=== PATIENT | male | born 1960 | race Caucasian/White ===

== ENCOUNTER 2020-08-07 07:12 | Outpatient (CLI) | payer OTHER, SELFPAY ==
[2020-08-07 08:34] LABS: Alanine Aminotransferase 21 U/L (4-50); Albumin Level 4.2 g/dL (3.5-5.1); Alkaline Phosphatase 63 U/L (38-126); Anion Gap 8 mmol/L (8-16); Aspartate Amino Transferase 27 U/L (17-59); Bilirubin,Total 1.3 mg/dL (0.2-1.3); Blood Urea Nitrogen 27 mg/dL (9-20); Carbon Dioxide 27 mmol/L (22-30); Chloride 105 mmol/L (98-107); Cholesterol 214 mg/dL (0-200); Estimated Glomerular Filt Rate > 60; Glucose 100 mg/dL (75-110); HDL Direct 57 mg/dL; Potassium 4.3 mmol/L (3.4-5.0); Sodium 140 mmol/L (137-145); Triglycerides 64 mg/dL (<150)
[2020-08-07 08:46] LABS: LDL Cholesterol Direct 95 mg/dL
[2020-08-07 09:04] LABS: Prostate Specific Antigen 0.8 ng/mL (< OR = 4.0)
[2020-08-07 09:11] LABS: Thyroid Stimulating Hormone 0.576 uIU/mL (0.465-4.680)
== END 2020-08-07 07:13 | disposition home or self-care (01) ==
PROVIDERS: PCP Family Medicine; Visit Provider Nurse Practitioner Family
DX: E78.2 Mixed hyperlipidemia (principal); Z13.29 Encounter for screening for other suspected endocrine disorder; Z12.5 Encounter for screening for malignant neoplasm of prostate
CPT/HCPCS: 36415; 80053; 80061; 84153; 84443; G0103

== ENCOUNTER 2020-12-12 06:50 | Outpatient (CLI) | payer OTHER, SELFPAY ==
[2020-12-12 08:26] LABS: Alanine Aminotransferase 33 U/L (4-50); Cholesterol 136 mg/dL (0-200); Creatine Kinase 30 U/L (55-170); HDL Direct 67 mg/dL; Triglycerides 52 mg/dL (<150)
[2020-12-12 08:37] LABS: LDL Cholesterol Direct 54 mg/dL
== END 2020-12-12 06:51 | disposition home or self-care (01) ==
PROVIDERS: PCP Family Medicine; Visit Provider Nurse Practitioner Family
DX: E78.2 Mixed hyperlipidemia (principal)
CPT/HCPCS: 36415; 80061; 82550; 84460

== ENCOUNTER 2021-09-16 06:53 | Outpatient (CLI) | payer OTHER, SELFPAY ==
[2021-09-16 07:21] LABS: Alanine Aminotransferase 25 U/L (6-50); Albumin Level 4.2 g/dL (3.5-5.1); Alkaline Phosphatase 64 U/L (38-126); Aspartate Amino Transferase 30 U/L (17-59); Bilirubin,Total 0.9 mg/dL (0.2-1.3); Cholesterol 138 mg/dL (0-200); HDL Direct 56 mg/dL; Triglycerides 42 mg/dL (<150)
[2021-09-16 07:32] LABS: LDL Cholesterol Direct 48 mg/dL
[2021-09-16 07:51] LABS: Prostate Specific Antigen 0.9 ng/mL (< OR = 4.0)
== END 2021-09-16 06:54 | disposition home or self-care (01) ==
LOC: ANHLAB 06:55
PROVIDERS: PCP Family Medicine; Visit Provider Family Medicine
DX: Z12.5 Encounter for screening for malignant neoplasm of prostate (principal); E78.2 Mixed hyperlipidemia; Z13.220 Encounter for screening for lipoid disorders
CPT/HCPCS: 36415; 80061; 80076; 84153; G0103

== ENCOUNTER 2022-11-27 07:07 | Outpatient (CLI) | payer OTHER, SELFPAY ==
[2022-11-27 08:02] LABS: Hematocrit 43.5 % (42.0-52.0); Hemoglobin 14.6 g/dL (14.0-18.0); Mean Corpuscular HGB Conc 33.6 g/dl (32-36); Mean Corpuscular Hemoglobin 31.4 pg (26-34); Mean Corpuscular Volume 93.5 fl (80-100); Mean Platelet Volume 9.9 fl (7.4-10.4); Platelet Count Result 203 k/mm3 (150-375); Red Blood Count 4.65 M/mm3 (4.6-6.20); Red Cell Distribution Width 12.2 % (11.5-14.5); White Blood Count 5.9 K/mm3 (4.5-10.0)
[2022-11-27 08:17] LABS: Alanine Aminotransferase 26 U/L (6-50); Albumin Level 4.3 g/dL (3.5-5.1); Alkaline Phosphatase 63 U/L (38-126); Anion Gap 3 mmol/L (8-16); Aspartate Amino Transferase 33 U/L (17-59); Bilirubin,Total 1.2 mg/dL (0.2-1.3); Blood Urea Nitrogen 27 mg/dL (9-20); Calcium 8.4 mg/dL (8.4-10.2); Carbon Dioxide 30 mmol/L (22-30); Chloride 103 mmol/L (98-107); Cholesterol 123 mg/dL (0-200); Estimated Glomerular Filt Rate > 60; Glucose 85 mg/dL (65-110); HDL Direct 55 mg/dL; Sodium 136 mmol/L (137-145); Triglycerides 41 mg/dL (<150)
[2022-11-27 08:28] LABS: LDL Cholesterol Direct 57 mg/dL
[2022-11-27 08:45] LABS: Thyroid Stimulating Hormone 0.387 uIU/mL (0.465-4.680)
[2022-11-27 16:21] LABS: Prostate Specific Antigen 1.1 ng/mL (< OR = 4.0)
== END 2022-11-27 07:08 | disposition home or self-care (01) ==
LOC: ANHLAB 07:08
PROVIDERS: PCP Family Medicine; Visit Provider Family Medicine
DX: Z13.220 Encounter for screening for lipoid disorders (principal); Z12.5 Encounter for screening for malignant neoplasm of prostate; E78.2 Mixed hyperlipidemia; G25.0 Essential tremor
CPT/HCPCS: 36415; 80048; 80061; 80076; 84153; 84443; 85027; G0103

== ENCOUNTER 2023-01-18 06:07 | Day surgery (SDC) | payer OTHER, SELFPAY ==
[2023-01-18 06:44] VITALS: BP 136/83; PULSE 67; RESP 16; TEMP 36.5; O2SAT 100
--- NOTE | 2023-01-18 07:23 | PM.HPGS ---
History of Present Illness History of Present Illness Consent: Risks, benefits, and alternatives have been discussed and questions answered. Patient agrees to proceed with procedure. Chief complaint: Neoplasm Screening Narrative: Waqas Raza is a 62 year old male presents for screening colonoscopy. Patient's current weight appetite and bowel movements are normal. Patient denies abdominal pain. He has had no bleeding. Family history noncontributory. Previous colonoscopy by Dr. Jeff le is unremarkable. Review of Systems Review of Systems: Review of Systems noncontributory. [facility] Past Medical History Medical History BMI 21.0-21.9, adult BMI 22.0-22.9, adult BMI 25.0-25.9,adult Hand cramp Melancholy Shoulder pain, bilateral Family History Family History Mother Family history of malignant neoplasm Father Hyperlipidemia Sibling No problems noted. Sibling Other Diabetes mellitus Social History Social History Smoking status: Never smoker Second hand tobacco smoke exposure: Yes Alcohol intake: current Drinks per week: 4 Substance use: current Substance use type: marijuana Other substance usage details: 3-4 times weekly Lack of Transportation: No Lack of Food: Never True Current Housing: I Have Housing Concerned About Future Housing: No Difficulty Paying Gas/Electric Bills: No Difficulty Paying for Meds: No Currently Unemployed: No Education: Trade/Vocational Certificate Difficulty w/ Childcare or Family Care: No Living arrangements: alone Occupation/Education: occupation 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 Gender identity (if verbalized by the patient): Male Spiritual care concerns: No Meds Home Medications and Allergies Home Medications Medication Instructions Recorded Confirmed Type aspirin 81 mg tablet,delayed 81 mg PO DAILY 07/08/22 01/18/23 History release cetirizine 10 mg capsule (Zyrtec) 10 mg PO DAILY 07/08/22 01/18/23 History rosuvastatin 20 mg tablet (Crestor) 20 mg PO DAILY #90 tabs 10/12/22 01/18/23 Rx sertraline 25 mg tablet 25 mg PO DAILY #30 tabs 12/23/22 01/18/23 Rx Allergies Allergy/AdvReac Type Severity Reaction Status Date / Time No Known Allergies Allergy Verified 01/18/23 06:43 Vital Signs Vital Signs - 24 hr 01/18/23 06:44 Temperature 97.7 F Pulse Rate 67 Respiratory Rate 16 Blood Pressure 136/83 Pulse Oximetry 100 Oxygen Delivery Room Air Exam Narrative: Physical exam reveals patient to be alert signs stable. HEENT exam is unremarkable. Patient is anicteric. So are clear to auscultation and to percussion. Heart is without murmur or extra sounds. Abdomen bowel sounds are present soft nontender with no organomegaly. Digital external rectal exam is normal. Assessment and Plan Assessment and plan (1) Screening for colon cancer: Code(s): Z12.11 - Encounter for screening for malignant neoplasm of colon Status: Acute Assessment and Plan: Patient presents for screening colonoscopy. He appears to be at average risk for colon polyps.
[2023-01-18] MEDS: LACTATED RINGERS 1,000 ML 150 ML IV CONT (07:34)
--- NOTE | 2023-01-18 07:34 | WPDANESEPPF ---
Anes - Initial Pre Proc Eval Procedure: Operation Date: 01/18/23 08:00 Proposed Procedures p Screening Colonoscopy - Nj Nuñez MD Date/Time: 01/18/23 07:34 Surgeon: Nj Nuñez MD Pre Op Diagnosis: Neoplasm Screening Patient Data Age: 62 Gender: M Height: 1.83 m Weight: 75.2 kg Last Vital Signs Temp 36.5 C 01/18/23 06:44 Pulse 67 01/18/23 06:44 Resp 16 01/18/23 06:44 BP 136/83 01/18/23 06:44 Pulse Ox 100 01/18/23 06:44 O2 Del Method Room Air 01/18/23 06:44 Allergies Allergy/AdvReac Type Severity Reaction Status Date / Time No Known Allergies Allergy Verified 01/18/23 06:43 Home Medications Medication Instructions Recorded Confirmed Type aspirin 81 mg tablet,delayed 81 mg PO DAILY 07/08/22 01/18/23 History release cetirizine 10 mg capsule (Zyrtec) 10 mg PO DAILY 07/08/22 01/18/23 History rosuvastatin 20 mg tablet (Crestor) 20 mg PO DAILY #90 tabs 10/12/22 01/18/23 Rx sertraline 25 mg tablet 25 mg PO DAILY #30 tabs 12/23/22 01/18/23 Rx Patient hx anesthesia problems: none Family hx anesthesia problems: none Results Review: All pre-operative results and documents have been reviewed as part of the pre-operative evaluation. [facility] Past Medical History Medical History BMI 21.0-21.9, adult BMI 22.0-22.9, adult BMI 25.0-25.9,adult Hand cramp Melancholy Shoulder pain, bilateral Family History Family History Mother Family history of malignant neoplasm Father Hyperlipidemia Sibling No problems noted. Sibling Other Diabetes mellitus Social History Social History Smoking status: Never smoker Second hand tobacco smoke exposure: Yes Alcohol intake: current Drinks per week: 4 Substance use: current Substance use type: marijuana Other substance usage details: 3-4 times weekly Lack of Transportation: No Lack of Food: Never True Current Housing: I Have Housing Concerned About Future Housing: No Difficulty Paying Gas/Electric Bills: No Difficulty Paying for Meds: No Currently Unemployed: No Education: Trade/Vocational Certificate Difficulty w/ Childcare or Family Care: No Living arrangements: alone Occupation/Education: occupation 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 Informed Consent: The patient's anesthetic plan and its attendant risks and benefits were discussed with the patient/family/POA. Questions were solicited and answers provided to the satisfaction of the patient/family/POA.
[2023-01-18] MEDS: SIMETHICONE ORAL SUSPENSION 20 MG/0.3 ML 30 ML BOTTLE 0.6 ML IRRIGATION (08:12)
[2023-01-18 08:21] VITALS: BP 110/57; PULSE 67; RESP 14; O2SAT 99
[2023-01-18 08:30] VITALS: BP 109/70; PULSE 69; RESP 16; O2SAT 100
--- NOTE | 2023-01-18 08:33 | WPDANESPN ---
Anes - Prog Note Post-Op Date/Time: 01/18/23 08:33 Cardiovascular status: normal Respiratory status: normal Airway patency: baseline Mental status: baseline Post-Op hydration status: normal Vital Signs: Last Vital Signs Temp 36.5 C 01/18/23 06:44 Pulse 67 01/18/23 08:21 Resp 14 01/18/23 08:21 BP 110/57 L 01/18/23 08:21 Pulse Ox 99 01/18/23 08:21 O2 Del Method Room Air 01/18/23 08:21 Pain Score (VAS): 0/10 I/O: Intake & Output 01/17/23 01/18/23 01/18/23 23:59 07:59 15:59 Intake Total 500 Balance 500 Patient Feedback: Patient satisfied with anesthetic care.
[2023-01-18 08:40] VITALS: BP 110/73; PULSE 69; RESP 16; O2SAT 100
== END 2023-01-18 08:59 | disposition home or self-care (01) ==
PROVIDERS: PCP Family Medicine; Visit Provider Internal Medicine Gastroenterology
PROC: 0DJD8ZZ Inspection of Lower Intestinal Tract, Via Natural or Artificial Opening Endoscopic (ICD-10-PCS; CPT 45378; principal; 2023-01-18 08:00)
DX: Z12.11 Encounter for screening for malignant neoplasm of colon (principal); K57.30 Diverticulosis of large intestine without perforation or abscess without bleeding; K64.8 Other hemorrhoids
CPT/HCPCS: 45378

== ENCOUNTER 2023-12-31 08:34 | Outpatient (CLI) | payer OTHER, SELFPAY ==
[2023-12-31 08:57] LABS: Hematocrit 46.2 % (42.0-52.0); Hemoglobin 15.7 g/dL (14.0-18.0); Mean Corpuscular Hemoglobin 31.9 pg (26-34); Mean Corpuscular Volume 93.9 fl (80-100); Mean Platelet Volume 9.6 fl (7.4-10.4); Platelet Count Result 216 k/mm3 (150-375); Red Blood Count 4.92 M/mm3 (4.6-6.20); Red Cell Distribution Width 12.3 % (11.5-14.5); White Blood Count 6.8 K/mm3 (4.5-10.0)
[2023-12-31 09:09] LABS: Alanine Aminotransferase 21 U/L (6-50); Albumin Level 4.4 g/dL (3.5-5.1); Alkaline Phosphatase 65 U/L (38-126); Anion Gap 7 mmol/L (4-12); Aspartate Amino Transferase 33 U/L (17-59); Bilirubin,Total 1.5 mg/dL (0.2-1.3); Blood Urea Nitrogen 23 mg/dL (9-20); Calcium 8.9 mg/dL (8.4-10.2); Carbon Dioxide 28 mmol/L (22-30); Chloride 104 mmol/L (98-107); Cholesterol 155 mg/dL (0-200); Estimated Glomerular Filt Rate > 60; Glucose 98 mg/dL (65-110); HDL Direct 55 mg/dL; Potassium 3.8 mmol/L (3.4-5.0); Sodium 139 mmol/L (137-145); Triglycerides 64 mg/dL (<150)
[2023-12-31 09:20] LABS: LDL Cholesterol Direct 71 mg/dL
[2023-12-31 09:39] LABS: Prostate Specific Antigen 1.6 ng/mL (< OR = 4.0); Thyroid Stimulating Hormone 0.335 uIU/mL (0.465-4.680)
== END 2023-12-31 08:35 | disposition home or self-care (01) ==
PROVIDERS: PCP Family Medicine; Visit Provider Family Medicine
DX: G25.0 Essential tremor (principal); E78.2 Mixed hyperlipidemia; Z13.220 Encounter for screening for lipoid disorders; Z12.5 Encounter for screening for malignant neoplasm of prostate
CPT/HCPCS: 36415; 80048; 80061; 80076; 84153; 84443; 85027; G0103

== ENCOUNTER 2025-01-19 07:00 | Outpatient (CLI) | payer OTHER, MEDICARE, SELFPAY ==
[2025-01-19 07:42] LABS: Hematocrit 41.7 % (42.0-52.0); Hemoglobin 14.2 g/dL (14.0-18.0); Mean Corpuscular HGB Conc 34.1 g/dl (32-36); Mean Corpuscular Hemoglobin 31.9 pg (26-34); Mean Corpuscular Volume 93.7 fl (80-100); Platelet Count Result 181 k/mm3 (150-375); Red Blood Count 4.45 M/mm3 (4.6-6.20); White Blood Count 7.2 K/mm3 (4.5-10.0)
[2025-01-19 08:03] LABS: Alanine Aminotransferase 22 U/L (6-50); Albumin Level 3.9 g/dL (3.5-5.1); Alkaline Phosphatase 70 U/L (38-126); Anion Gap 3 mmol/L (4-12); Aspartate Amino Transferase 29 U/L (17-59); Bilirubin,Total 1.0 mg/dL (0.2-1.3); Blood Urea Nitrogen 23 mg/dL (9-20); Calcium 8.4 mg/dL (8.4-10.2); Carbon Dioxide 28 mmol/L (22-30); Chloride 103 mmol/L (98-107); Cholesterol 126 mg/dL (0-200); Estimated Glomerular Filt Rate > 60; Glucose 103 mg/dL (65-110); HDL Direct 53 mg/dL; Potassium 4.2 mmol/L (3.4-5.0); Sodium 134 mmol/L (137-145); Total Protein 7.0 g/dL (6.3-8.2); Triglycerides 40 mg/dL (<150)
[2025-01-19 08:39] LABS: Prostate Specific Antigen 1.1 ng/mL (< OR = 4.0)
== END 2025-01-19 07:01 | disposition home or self-care (01) ==
PROVIDERS: PCP Family Medicine; Visit Provider Family Medicine
DX: Z12.5 Encounter for screening for malignant neoplasm of prostate (principal); Z13.220 Encounter for screening for lipoid disorders; E78.2 Mixed hyperlipidemia; G25.0 Essential tremor
CPT/HCPCS: 36415; 80048; 80061; 80076; 84153; 85027; G0103